=== PATIENT | male | born 1990 | race Hispanic/Latino ===

== ENCOUNTER → 2025-01-24 | Outpatient (CLI) | payer OTHER ==
--- NOTE | 2025-01-24 19:29 | HMCIMG ---
EXAM: CR Sacrum and Coccyx, 3 View. CLINICAL HISTORY: BACK PAIN LATERALLY COMPARISON: None provided. FINDINGS: BONES: No acute fracture or aggressive appearing osseous lesion. Bony alignment is anatomic. SOFT TISSUES: The soft tissues are unremarkable. IMPRESSION: No acute osseous abnormality. /[place]
--- NOTE | 2025-01-24 19:30 | HMCIMG ---
EXAM: XR Lumbar spine, 2 to 3 Views total. CLINICAL HISTORY: Unspecified back pain. COMPARISON: None available. FINDINGS: BONES: Normal lumbar lordosis maintained. No spondylolisthesis or acute malalignment. Posterior vertebral body alignment is within normal limits in the lumbar spine. Preserved heights except for a superior endplate depression of the L3 vertebral body, likely representing a mild chronic compression deformity. No evidence of acute fracture line. No aggressive appearing osseous lesion. Mild degenerative lumbar spondylosis with small anterior marginal osteophytes along multiple vertebral endplates. Sacroiliac joints appear symmetric and unremarkable. DISCS/DEGENERATIVE CHANGES: Mild intervertebral disc space narrowing at mid-lumbar levels. Mild degenerative facet arthropathy in the lower lumbar segments. SOFT TISSUES: No abnormal prevertebral or paraspinal soft tissue density. The visualized lungs appear clear. IMPRESSION: 1. Mild chronic compression deformity of the L3 superior endplate. 2. Mild degenerative changes of the lumbar spine, including mild intervertebral disc space narrowing at mid-lumbar levels, mild degenerative lumbar spondylosis with small anterior marginal osteophytes, and mild degenerative facet arthropathy in the lower lumbar segments. 3. No acute osseous injury. 4. Several stable chronic and incidental findings are noted, as detailed in the body of the report. /[place]
--- NOTE | 2025-01-24 23:48 | HMCIMG ---
EXAM: CR Thoracic Spine, 3 views. CLINICAL HISTORY: Unspecified back pain laterally. COMPARISON: None provided. FINDINGS: Thoracic alignment is within normal limits. Mild osteopenia. Mild degenerative changes in the mid thoracic spine. Normal vertebral body heights. No acute fracture. Soft tissues are within normal limits. IMPRESSION: No acute bony changes. Mild osteopenia. Mild degenerative changes in the mid thoracic spine. /[place]
== END | disposition home or self-care (01) ==
LOC: RAH 14:44
PROVIDERS: ATTEND Internal Medicine
DX: M54.9 Dorsalgia, unspecified (principal); M85.88 Other specified disorders of bone density and structure, other site; M47.815 Spondylosis without myelopathy or radiculopathy, thoracolumbar region; M48.061 Spinal stenosis, lumbar region without neurogenic claudication; M43.8X6 Other specified deforming dorsopathies, lumbar region
CPT/HCPCS: 72072; 72100; 72220

== ENCOUNTER → 2025-03-28 | Outpatient (CLI) | payer OTHER ==
[~2025-03-28] MED LIST: IOHEXOL-350 75 ML VIAL IV ONE
--- NOTE | 2025-03-29 01:09 | HMCIMG ---
STUDY CT Lumbar Spine with and without IV contrast. HISTORY Sacrococcygeal pain, sacrococcygeal disorders not elsewhere classified. TECHNIQUE Axial CT images of the lumbar spine were obtained before and after intravenous contrast with sagittal and coronal reformations. COMPARISON Prior lumbar spine radiographs. 01/24 15:21 EDT FINDINGS ALIGNMENT Lumbar spinal alignment is anatomic without listhesis. DISCS AND DEGENERATIVE CHANGES Mild degenerative lumbar spondylosis is present. Schmorl's nodes are noted at several vertebral endplates. At T12-L1, L1-L2, L2-L3, L3-L4, L4-L5, and L5-S1, there is no significant central canal or neural foraminal stenosis. BONES No acute lumbar spine fracture is identified. No aggressive-appearing osseous lesion is seen. SOFT TISSUES Paraspinal soft tissues are unremarkable. No abnormal contrast enhancement is identified. IMPRESSION * Mild degenerative lumbar spondylosis with Schmorl's nodes, unchanged in character compared with prior lumbar spine radiographs. * No acute lumbar spine abnormality and no significant central canal or neural foraminal stenosis at any lumbar level. /[place]
== END | disposition home or self-care (01) ==
LOC: RAH 09:58
PROVIDERS: ATTEND Internal Medicine Gastroenterology
DX: M47.816 Spondylosis without myelopathy or radiculopathy, lumbar region (principal); M53.3 Sacrococcygeal disorders, not elsewhere classified; M51.46 Schmorl's nodes, lumbar region
CPT/HCPCS: 72133; Q9967